=== PATIENT | female | born 1970 | race Caucasian/White ===

== ENCOUNTER 2017-01-26 09:52 | Emergency (ER) | payer BC, OTHER ==
[~2017-01-26] VITALS: Ht 160 cm; Wt 83.9 kg
[2017-01-26] MEDS ORDERED: ONDANSETRON 2MG/ML, 2ML ONE (10:21)
[2017-01-26] MEDS ORDERED: LORazepam 2 MG/ML, 1ML ONE (10:22)
[2017-01-26] MEDS ORDERED: LORazepam 2 MG/ML, 1ML IVPush ONE (10:30)
[2017-01-26] MEDS ORDERED: SODIUM CHLORIDE 0.9% 1,000ML IVBOLUS ONE (10:30)
[2017-01-26] MEDS ORDERED: ONDANSETRON 2MG/ML, 2ML IVPush ONE (10:30)
[2017-01-26] MEDS ORDERED: SODIUM CHLORIDE FLUSH 10ML SYR IVF ONE (10:30)
[2017-01-26 11:09] LABS: WHITE BLOOD COUNT 7.8 x10^3/uL (3.4-10)
[2017-01-26 11:21] LABS: ASPARTATE AMINO TRANSFERASE 15 U/L (15-37); BLOOD UREA NITROGEN 10 mg/dL (7-18)
[2017-01-26 12:26] LABS: IS PT STATUS REG ER OR PRE ER? YES
[2017-01-26 12:31] VITALS: BP 137/80
== END 2017-01-26 12:33 | disposition home or self-care (01) ==
LOC: ED 10:30
DX: R07.89 Other chest pain (principal); F41.1 Generalized anxiety disorder
CPT/HCPCS: 36415; 71010; 80053; 83690; 84484; 84703; 85025; 85379; 85610; 85730; 93005; 96361; 96374; 96375; 99285; J2060; J2405; J7030

== ENCOUNTER → 2017-02-22 | Outpatient (CLI) | payer BC | END | disposition home or self-care (01) | LOC: RAD 09:38 | PROVIDERS: ATTEND Nurse Practitioner Family | DX: M25.78 Osteophyte, vertebrae (principal) | CPT/HCPCS: 71020 ==

== ENCOUNTER 2019-12-16 16:05 | Emergency (ER) | payer BC, OTHER ==
[~2019-12-16] VITALS: Ht 160 cm; Wt 88.1 kg
[2019-12-16 16:06] VITALS: BP 154/95
[2019-12-16] MEDS ORDERED: KETOROLAC 30 MG/1 ML ONE (16:57)
[2019-12-16] MEDS ORDERED: KETOROLAC 30 MG/1 ML IM ONE (17:00)
[2019-12-16 17:08] LABS: MICROSCOPIC AUTO
--- NOTE | 2019-12-16 17:17 | NUR ---
pt medicated per emar. pt tolerated well.
--- NOTE | 2019-12-16 17:41 | NUR ---
pa at bedside. pt stated"can you order us for blood clot?"
--- NOTE | 2019-12-16 18:48 | NUR ---
Patient given discharge instructions and they have confirmed that they understand the instructions. Patient ambulatory with steady gait.
== END 2019-12-16 18:49 | disposition home or self-care (01) ==
LOC: ED 17:49
DX: M79.652 Pain in left thigh (principal); N30.00 Acute cystitis without hematuria; R42 Dizziness and giddiness; R11.0 Nausea; R10.30 Lower abdominal pain, unspecified
CPT/HCPCS: 81001; 87077; 87086; 87186; 93971; 96372; 99284; J1885